=== PATIENT | male | born 1995 | race American Indian/Alaskan Native ===

== ENCOUNTER 2021-07-13 00:55 | Emergency (ER) | payer SELFPAY ==
[2021-07-13 02:21] LABS: Bilirubin,Urine NEG (Negative); Blood,Urine NEG (Negative); Color,Urine Straw (Yellow); Protein,Urine <15 mg/dL mg/dL (Negative); Urobilinogen,Urine < 2.0 mg/dL (<2.0)
--- NOTE | 2021-07-13 03:36 | Emergency Department Report ---
ED Male HPI - General Chief complaint: Urogenital-Male Stated complaint: DISCHARGE Time Seen by Provider: 07/13/21 03:32 Source: patient Mode of arrival: Ambulatory Limitations: No Limitations - History of Present Illness Initial comments: Patient 26-year-old male who presents for grayish-green penile discharge with dysuria frequency and urgency for the past week. He denies fevers or chills there is no nausea or vomiting. He has rates dysuria at 5/10 exacerbated by voiding. Patient has spoken with partner since encounter. And advised her to [place] treatment. MD Complaint: penile discharge, dysuria Onset/Timin -: week(s) - Related Data Previous Rx's Medication Instructions Recorded Last Taken Type DOXYCYCLINE Hyclate [Vibramycin 100 mg PO BID 7 Days #20 capsule 07/13/21 Unknown Rx CAP] Allergies Allergy/AdvReac Type Severity Reaction Status Date / Time No Known Allergies Allergy Unverified 07/13/21 01:53 ED Review of Systems ROS: Stated complaint: DISCHARGE Other details as noted in HPI Constitutional: denies: chills, fever Eyes: denies: eye pain, eye discharge, vision change ENT: denies: ear pain, throat pain Respiratory: denies: cough, shortness of breath, wheezing Cardiovascular: denies: chest pain, palpitations Endocrine: no symptoms reported Gastrointestinal: denies: abdominal pain, nausea, vomiting, diarrhea Genitourinary: urgency, dysuria, frequency, discharge. denies: testicular mass Musculoskeletal: denies: back pain, joint swelling, arthralgia Skin: as per HPI, rash Neurological: denies: headache, weakness, paresthesias, vertigo, other Psychiatric: denies: anxiety, depression Hematological/Lymphatic: denies: easy bleeding, easy bruising ED Past Medical Hx - Past Medical History Previous Medical History?: No - Surgical History Past Surgical History?: No - Medications Home Medications: Home Medications Medication Instructions Recorded Confirmed Last Taken Type DOXYCYCLINE Hyclate [Vibramycin 100 mg PO BID 7 Days #20 capsule 07/13/21 Unknown Rx CAP] ED Physical Exam - General Limitations: No Limitations General appearance: alert, in no apparent distress - Head Head exam: Present: atraumatic, normocephalic - Eye Eye exam: Present: PERRL, EOMI Pupils: Present: normal accommodation - ENT ENT exam: Present: normal exam, normal orophraynx, mucous membranes moist - Neck Neck exam: Present: normal inspection, full ROM. Absent: tenderness - Respiratory Respiratory exam: Present: normal lung sounds bilaterally, wheezes, rhonchi. Absent: respiratory distress - Cardiovascular Cardiovascular Exam: Present: regular rate, normal rhythm, normal heart sounds. Absent: systolic murmur, diastolic murmur, rubs, gallop - GI/Abdominal GI/Abdominal exam: Present: soft, normal bowel sounds. Absent: distended, tenderness, guarding, rebound, rigid, bruit, hernia - Rectal Rectal exam: Present: deferred - exam: Present: normal inspection, testicular tenderness - Extremities Exam Extremities exam: Present: normal inspection, full ROM. Absent: tenderness - Back Exam Back exam: Present: normal inspection, full ROM, tenderness, CVA tenderness (R). Absent: CVA tenderness (L), paraspinal tenderness, vertebral tenderness - Neurological Exam Neurological exam: Present: alert, oriented X3, CN II-XII intact, normal gait - Skin Skin exam: Present: warm, dry, intact, normal color, cyanosis. Absent: rash ED Course Vital Signs 07/13/21 01:37 Temperature 98.4 F Pulse Rate 77 Respiratory 16 Rate Blood Pressure 126/73 [Right] O2 Sat by Pulse 100 Oximetry - Reevaluation(s) Reevaluation #1: 07/13/21 03:42 rocephin , azitromycin po , ED Medical Decision Making - Medical Decision Making This is likely an STI, patient has no other medical history, there are no open lesions or sores, patient is voiding with some dysuria however there is discharge yellow-green , partner endorses same. There is no fevers or chills. Patient treated for STI with Rocephin and azithromycin, will be DC'd home in stable condition with prescription for doxycycline. Patient will follow-up with health department for HIV and HSV screening patient verbalized agreement and understanding with discharge plan. Patient will be DC'd home in stable condition after medications and observation.. Critical care attestation.: If time is entered above; I have spent that time in minutes in the direct care of this critically ill patient, excluding procedure time. ED Disposition Clinical Impression: STI (sexually transmitted infection) Disposition: HOME / SELF CARE / HOMELESS Is pt being admited?: No Does the pt Need Aspirin: No Condition: Stable Instructions: Dysuria, Safe Sex Additional Instructions: Follow-up with health department for HIV and at bedtime screening in 2 to 3 days. Practice safe sex as directed and agreed. Return to emergency department as if symptoms worsen. Prescriptions: DOXYCYCLINE Hyclate [Vibramycin CAP] 100 mg PO BID 7 Days #20 capsule Referrals: [facility] [Provider Group] - 3-5 Days Forms: Work/School Release Form(ED) Time of Disposition: 03:55
[2021-07-13] MEDS ORDERED: LIDOCAINE-MPF (1%) 10 MG/1 ML VIAL 5 ML INFILTRATI ONE (03:43)
[2021-07-13] MEDS ORDERED: AZITHROMYCIN 250 MG TAB PO ONE (03:43)
[2021-07-13 04:24] VITALS: BP 121/63
== END 2021-07-13 04:24 | disposition home or self-care (01) ==
LOC: ED 00:55
DX: A64 Unspecified sexually transmitted disease (principal)
CPT/HCPCS: 81001; 87086; 96372; 99283; J0696

== ENCOUNTER 2021-09-11 14:47 | Emergency (ER) | payer SELFPAY | END 2021-09-11 23:29 | LOC: ED 14:47 | DX: F32.A Depression, unspecified (principal); Z53.21 Procedure and treatment not carried out due to patient leaving prior to being seen by health care provider ==